=== PATIENT | female | born 1940 | race Caucasian/White ===

== ENCOUNTER 2019-11-27 10:25 | Inpatient (IN) | payer MEDICARE, BC ==
[2019-11-20 11:18] LABS: BASOPHILS # (AUTO) 0.1 X10'3 (0-0.2); BASOPHILS % (AUTO) 0.8 % (0-1); EOSINOPHILS # (AUTO) 0.1 X10'3 (0-0.9); EOSINOPHILS % (AUTO) 2.1 % (0-6); LYMPHOCYTES # (AUTO) 2.2 X10'3 (1.1-4.8); LYMPHOCYTES % (AUTO) 32.7 % (21-51); MEAN CORPUSCULAR HEMOGLOBIN 28.7 PG (27.0-31.0); MEAN CORPUSCULAR HGB CONC 32.7 g/dL (33.0-36.5); MEAN CORPUSCULAR VOLUME 87.7 FL (78-98); MEAN PLATELET VOLUME 7.6 FL (7.4-10.4); MONOCYTES # (AUTO) 0.4 X10'3 (0-0.9); MONOCYTES % (AUTO) 5.7 % (2-12); NEUTROPHILS % (AUTO) 58.7 % (42-75); PRE OP HEMATOCRIT 41.4 % (35.0-45.0); PRE OP HEMOGLOBIN 13.5 g/dL (12.0-16.0); PRE OP PLATELET COUNT 393 X10'3 (140-440); RED BLOOD COUNT 4.71 X10'6 (4.20-5.60); RED CELL DISTRIBUTION WIDTH 13.9 % (11.5-14.5)
[2019-11-20 11:31] LABS: ALBUMIN 3.5 G/DL (3.4-5.0); BLOOD UREA NITROGEN 15 MG/DL (7-18); CHLORIDE 108 MMOL/L (99-107); CREATININE 0.94 MG/DL (0.40-0.90); PRE OP ANION GAP 7 (8-16); PRE OP BILIRUB, TOTAL 0.4 MG/DL (0.0-1.0); PRE OP GLUCOSE 137 MG/DL (70-104); PRE OP POTASSIUM 3.9 MMOL/L (3.4-5.1); PRE OP SODIUM 143 MMOL/L (135-145); TOTAL CARBON DIOXIDE 28.4 MMOL/L (24-32); TOTAL PROTEIN 7.3 G/DL (6.4-8.2); eGFR 57 ML/MIN
[2019-11-20 11:32] LABS: ALBUMIN/GLOBULIN RATIO 0.9 (1.1-1.5); ALKALINE PHOSPHATASE 122 IU/L (46-116); PRE OP ALT 23 U/L (30-65); PRE OP AST 14 U/L (10-37)
[2019-11-20 11:58] LABS: HEMOGLOBIN A1C 7.2 % (4.5-6.2)
[~2019-11-27] VITALS: Ht 157.5 cm; Wt 88.0 kg
[2019-11-27] VITALS (18 sets, daily range): BP systolic 106–165; BP diastolic 47–84
[~2019-11-27 10:25] MED LIST: ASPI81TA52 PO; CHOL200035 PO; GLIM2TAB6 PO; LOSA50TA64 PO; MULT-1085 PO; OMEG500C PO; PANT-47 PO; PIOG30TA2 PO; clindamycin-Cleocin 900mg/D5W 50 ML IV ONE; famotidine 10mg tablet PO ONE; vancomycin inj 1,500 MG in normal saline 300ml IV soln IV ONE
[2019-11-27] MEDS: ringers solution, lacted 1,000 ML IV SCH ×2 (11:32→21:07)
[2019-11-27] MEDS ORDERED: ROPIVAcaine 0.5% (5mg/ml) 30ml vial ONE ×2 (13:28→16:51)
[2019-11-27] MEDS ORDERED: ketorolac trometh. 30mg/ml inj. ONE (13:28)
[2019-11-27] MEDS ORDERED: tetracaine 1% (10mg/ml) pres. free inj. ONE (14:20)
[2019-11-27] MEDS ORDERED: MIDAZolam 1mg/ml 10ml vial ONE (14:30)
[2019-11-27] MEDS ORDERED: fentaNYL/PF 50MCG/1 ML 2ML syringe ONE (14:30)
[2019-11-27] MEDS ORDERED: propofol inj 20 ML IV ONE (15:04)
[2019-11-27] MEDS ORDERED: ringers solution, lacted 1,000 ML IV SCH (15:33)
[2019-11-27] MEDS ORDERED: ondansetron/PF 4mg/2ml inj IV PRN ×2 (15:35→17:00)
[2019-11-27] MEDS ORDERED: morphine 4 MG/ML inj SYRINge IV PRN ×2 (15:35)
[2019-11-27] MEDS ORDERED: proCHLORperazine 10 MG/2 ml inj IV PRN (15:35)
[2019-11-27] MEDS ORDERED: meperidine/PF 25mg/ml syringe IV PRN ×3 (15:35)
[2019-11-27] MEDS ORDERED: acetaminophen 325mg tablet PO PRN (17:00)
[2019-11-27] MEDS ORDERED: bisacodyl 10mg suppository rectal RC PRN (17:00)
[2019-11-27] MEDS ORDERED: diphenhydrAMINE 25mg capsule PO PRN ×2 (17:00)
[2019-11-27] MEDS ORDERED: HYDROmorphone 1 mg/ml syringe IV PRN (17:00)
[2019-11-27] MEDS ORDERED: magnesium hydroxide 30ml (MOM) UD suspension PO PRN (17:00)
[2019-11-27] MEDS ORDERED: HYDROmorphone inj. 0.5 MG/0.5 ML DISP.SYRIN IV PRN (17:00)
[2019-11-27] MEDS ORDERED: oxyCODONE IR 5mg (immed. release) tablet PO PRN (17:00)
--- NOTE | 2019-11-27 17:30 | NUR ---
Received from OR via ORTHO BED WITH MDWILI , accompanied by Anesthesiologist ALBERTA and report given by Anesthesiolgist. PATIENT WITH 20G PIV IN LEFT UE RUNNING LR AT 100. DENIES PAIN. SPINAL SENSATION LEVEL AT T 9 AT THIS TIME. VSS. SCDS DONNED. VSS, GLASSES ON. Addendum: 11/27/19 at 1743 by Arun Chung RN, RN Amended: Links added.
[2019-11-27] MEDS: ROPIVAcaine 0.2%/PF PUMP/bolus 550 ML ADDCANAL SCH (17:37)
--- NOTE | 2019-11-27 18:49 | NUR ---
ALL CRITERIA FOR TRANSFER TO THE FLOOR HAS BEEN ACHIEVED. VSS. BED LOW, CALL LIGHT AND VS. SET IN PLACE. RN PRESENT TO ACCEPT CARE. PATIENT RESTING COMFORTABLY IN BED. BELONGINGS SENT WITH PATIENT. DRESSINGS CDI. ANJEL ARZATE PRESENT TO ACCEPT CARE OF PATIENT. Addendum: 11/27/19 at 1850 by Arun Roblero - ANJEL HOBBS Amended: Links added.
[2019-11-27] MEDS ORDERED: vancomycin/NS 1 GM ADD-VANTAGE 250 ML IV SCH (20:00)
[2019-11-27] MEDS: acetaminophen 325mg tablet PO SCH (20:56)
[2019-11-27] MEDS: sennosides 8.6mg tablet PO SCH (20:56)
[2019-11-27] MEDS: clindamycin 600mg/D5W 50ml 50 ML IV SCH (20:59)
[2019-11-27] MEDS: potassium cl 20mEq in 1/2 NS 1,000 ML IV SCH (21:08)
[2019-11-27] MEDS: oxyCODONE IR 5mg (immed. release) tablet PO PRN (21:17)
[2019-11-28] MEDS: clindamycin 600mg/D5W 50ml 50 ML IV SCH (01:57)
[2019-11-28 02:00] VITALS: BP 124/52
[2019-11-28] MEDS: acetaminophen 325mg tablet PO SCH ×4 (02:01→19:30)
[2019-11-28] MEDS: oxyCODONE IR 5mg (immed. release) tablet PO PRN ×4 (02:05→19:31)
[2019-11-28 06:00] VITALS: BP 105/41
[2019-11-28 06:13] LABS: BASOPHILS % (AUTO) 0.7 % (0-1); EOSINOPHILS # (AUTO) 0.2 X10'3 (0-0.9); EOSINOPHILS % (AUTO) 2.4 % (0-6); HEMOGLOBIN 10.5 g/dl (12.0-16.0); LYMPHOCYTES # (AUTO) 1.9 X10'3 (1.1-4.8); LYMPHOCYTES % (AUTO) 26.4 % (21-51); MEAN CORPUSCULAR HEMOGLOBIN 29.8 PG (27.0-31.0); MEAN CORPUSCULAR HGB CONC 33.9 g/dL (33.0-36.5); MEAN PLATELET VOLUME 7.3 FL (7.4-10.4); MONOCYTES # (AUTO) 0.6 X10'3 (0-0.9); MONOCYTES % (AUTO) 8.9 % (2-12); NEUTROPHILS # (AUTO) 4.4 X10'3 (1.8-7.7); NEUTROPHILS % (AUTO) 61.6 % (42-75); PLATELET COUNT 296 X10'3 (140-440); RED BLOOD COUNT 3.52 X10'6 (4.20-5.60); RED CELL DISTRIBUTION WIDTH 13.8 % (11.5-14.5); WHITE BLOOD COUNT 7.1 X10'3 (4.5-11.0)
[2019-11-28 07:21] LABS: ANION GAP 10 (8-16); CHLORIDE 107 MMOL/L (99-107); POTASSIUM 4.2 MMOL/L (3.5-5.1); SODIUM 141 MMOL/L (135-145); TOTAL CARBON DIOXIDE 24.3 MMOL/L (24-32)
[2019-11-28] MEDS: aspirin 325mg tablet PO SCH (07:43)
[2019-11-28] MEDS: vitamin D (cholecalciferol) 1,000 unit tablet PO SCH (07:43)
[2019-11-28] MEDS: losartan 50mg tablet PO SCH (07:43)
[2019-11-28] MEDS: multivitamins, therapeutics tablet PO SCH (07:43)
[2019-11-28] MEDS: pantoprazole 40mg Tablet.DR PO SCH (07:43)
[2019-11-28] MEDS: OMEGA-3/DHA/EPA/FISH OIL 1 EACH CAPSULE.DR PO SCH ×2 (07:43→19:29)
[2019-11-28] MEDS: glimepiride 1 MG tablet PO SCH (07:44)
[2019-11-28] MEDS: ROPIVAcaine 0.2% (10 MG/5 ML) BOLUS INJECTION ADDCANAL PRN (08:00)
[2019-11-28] MEDS ORDERED: aspirin 81mg tablet.DR PO SCH (08:00)
[2019-11-28] MEDS: pioglitazone 15mg tablet PO SCH (08:46)
[2019-11-28 10:00] VITALS: BP 118/48
[2019-11-28] MEDS: ROPIVAcaine 0.2%/PF PUMP/bolus 550 ML ADDCANAL SCH (10:00)
[2019-11-28 14:00] VITALS: BP 123/78
[2019-11-28] MEDS: potassium cl 20mEq in 1/2 NS 1,000 ML IV SCH ×2 (15:56→17:05)
--- NOTE | 2019-11-28 15:56 | NUR ---
Joint Replacement/DM Consult: Pt admitted with A1c of 7.2, previously documented with A1c of 6.6 on 07/2019. Pt s/p knee replacement. RD internal combustion engine inspector visited pt at bedside and provided written and verbal high protein and DM education with referral to CDE course and RD contact information. Pt reports currently on actos and glimepiride for DM management and checks her blood sugars in the morning and night. Pt reports she recently switched doctors for DM management; pt encouraged to visit doctor. Pt reports a good appetite and wishes for fruit on all trays, d/w dietary. Pt denies food allergies, difficulty chewing/swallowing, and constipation/diarrhea. Will continue to monitor. Addendum: 11/28/19 at 1557 by Wing Shelli RUSSELL Amended: Links added. Addendum: 11/28/19 at [address] I have reviewed and agree with note by Quill Layer. Bernadine Luna, RD
[2019-11-28 18:00] VITALS: BP 138/70
--- NOTE | 2019-11-28 18:29 | NUR ---
Problems reprioritized. Patient report given, questions answered & plan of care reviewed with Blanca HOBBS .
--- NOTE | 2019-11-28 18:38 | NUR ---
Patient in room ORTHO 4023. I have received report from Carlos HOBBS and had the opportunity to ask questions and assume patient care.
[2019-11-28] MEDS: sennosides 8.6mg tablet PO SCH (21:22)
[2019-11-28 22:00] VITALS: BP 132/53
[2019-11-29] MEDS: potassium cl 20mEq in 1/2 NS 1,000 ML IV SCH ×2 (00:56→08:56)
[2019-11-29] MEDS: acetaminophen 325mg tablet PO SCH ×3 (02:00→14:43)
[2019-11-29 05:00] VITALS: BP 145/59
--- NOTE | 2019-11-29 06:41 | NUR ---
Problems reprioritized. Patient report given, questions answered & plan of care reviewed with Edna HOBBS.
[2019-11-29 06:56] LABS: BASOPHILS % (AUTO) 0.6 % (0-1); EOSINOPHILS # (AUTO) 0.1 X10'3 (0-0.9); EOSINOPHILS % (AUTO) 2.1 % (0-6); HEMATOCRIT 29.8 % (35.0-45.0); HEMOGLOBIN 10.1 g/dl (12.0-16.0); LYMPHOCYTES # (AUTO) 1.5 X10'3 (1.1-4.8); LYMPHOCYTES % (AUTO) 25.1 % (21-51); MEAN CORPUSCULAR HEMOGLOBIN 29.5 PG (27.0-31.0); MEAN CORPUSCULAR HGB CONC 33.9 g/dL (33.0-36.5); MEAN CORPUSCULAR VOLUME 87.1 FL (78-98); MEAN PLATELET VOLUME 7.7 FL (7.4-10.4); MONOCYTES # (AUTO) 0.7 X10'3 (0-0.9); MONOCYTES % (AUTO) 10.9 % (2-12); NEUTROPHILS # (AUTO) 3.7 X10'3 (1.8-7.7); NEUTROPHILS % (AUTO) 61.3 % (42-75); PLATELET COUNT 302 X10'3 (140-440); RED BLOOD COUNT 3.42 X10'6 (4.20-5.60); RED CELL DISTRIBUTION WIDTH 13.7 % (11.5-14.5)
[2019-11-29] MEDS: oxyCODONE IR 5mg (immed. release) tablet PO PRN ×4 (07:43→23:00)
[2019-11-29] MEDS: ROPIVAcaine 0.2%/PF PUMP/bolus 550 ML ADDCANAL SCH (07:45)
[2019-11-29] MEDS: losartan 50mg tablet PO SCH (08:33)
[2019-11-29] MEDS: pioglitazone 15mg tablet PO SCH (08:33)
[2019-11-29] MEDS: pantoprazole 40mg Tablet.DR PO SCH (08:33)
[2019-11-29] MEDS: aspirin 325mg tablet PO SCH (08:33)
[2019-11-29] MEDS: OMEGA-3/DHA/EPA/FISH OIL 1 EACH CAPSULE.DR PO SCH ×2 (08:35→20:27)
[2019-11-29] MEDS: vitamin D (cholecalciferol) 1,000 unit tablet PO SCH (08:35)
[2019-11-29] MEDS: multivitamins, therapeutics tablet PO SCH (08:35)
[2019-11-29] MEDS: glimepiride 1 MG tablet PO SCH (08:44)
[2019-11-29 10:00] VITALS: BP 121/48
[2019-11-29 17:00] VITALS: BP 129/47
[2019-11-29] MEDS ORDERED: acetaminophen 325mg tablet PO PRN (17:00)
[2019-11-29 18:00] VITALS: BP 129/47
[2019-11-29] MEDS: sennosides 8.6mg tablet PO SCH (20:27)
[2019-11-29 22:00] VITALS: BP 117/48
--- NOTE | 2019-11-29 23:16 | NUR ---
reviewed and agree with SRN nursing assessment.
[2019-11-30] MEDS: oxyCODONE IR 5mg (immed. release) tablet PO PRN (05:29)
--- NOTE | 2019-11-30 06:05 | NUR ---
Problems reprioritized. Patient report given, questions answered & plan of care reviewed with ANJEL Kunz.
[2019-11-30 06:12] LABS: BASOPHILS % (AUTO) 0.4 % (0-1); EOSINOPHILS # (AUTO) 0.2 X10'3 (0-0.9); EOSINOPHILS % (AUTO) 2.3 % (0-6); HEMATOCRIT 28.4 % (35.0-45.0); HEMOGLOBIN 9.7 g/dl (12.0-16.0); LYMPHOCYTES % (AUTO) 25.7 % (21-51); MEAN CORPUSCULAR HEMOGLOBIN 29.5 PG (27.0-31.0); MEAN CORPUSCULAR HGB CONC 34.1 g/dL (33.0-36.5); MEAN CORPUSCULAR VOLUME 86.5 FL (78-98); MEAN PLATELET VOLUME 7.5 FL (7.4-10.4); MONOCYTES # (AUTO) 0.7 X10'3 (0-0.9); MONOCYTES % (AUTO) 9.7 % (2-12); NEUTROPHILS # (AUTO) 4.7 X10'3 (1.8-7.7); NEUTROPHILS % (AUTO) 61.9 % (42-75); PLATELET COUNT 305 X10'3 (140-440); RED BLOOD COUNT 3.29 X10'6 (4.20-5.60); RED CELL DISTRIBUTION WIDTH 13.6 % (11.5-14.5); WHITE BLOOD COUNT 7.6 X10'3 (4.5-11.0)
--- NOTE | 2019-11-30 06:29 | NUR ---
Received report from Vickie HOBBS
[2019-11-30 07:06] VITALS: BP 128/65
[2019-11-30] MEDS: pantoprazole 40mg Tablet.DR PO SCH (07:45)
[2019-11-30] MEDS: vitamin D (cholecalciferol) 1,000 unit tablet PO SCH (07:46)
[2019-11-30] MEDS: multivitamins, therapeutics tablet PO SCH (07:46)
[2019-11-30] MEDS: glimepiride 1 MG tablet PO SCH (07:46)
[2019-11-30] MEDS: losartan 50mg tablet PO SCH (07:46)
[2019-11-30] MEDS: aspirin 325mg tablet PO SCH (07:46)
[2019-11-30] MEDS: pioglitazone 15mg tablet PO SCH (07:46)
[2019-11-30] MEDS: OMEGA-3/DHA/EPA/FISH OIL 1 EACH CAPSULE.DR PO SCH (07:46)
[2019-11-30] MEDS: ROPIVAcaine 0.2% (10 MG/5 ML) BOLUS INJECTION ADDCANAL PRN (11:55)
[2019-11-30 12:18] VITALS: BP 111/64
--- NOTE | 2019-11-30 16:25 | NUR ---
PATIENT WAS DISCHARGED IV AND TELE WAS REMOVED FROM PATIENT. PATIENT WAS ALERT AND ORIENTED AT TIME OF DISCHARGE, PATIENT LEFT WITH .
--- NOTE | 2019-12-02 12:41 | NUR ---
Case Management DC follow up: spoke to pt via telephone. reports feeling good. Feels better when she is up walking. Denies cp, emergent/acute general pain, rash, SOB, resp distress, NV, dizziness. Denies s/s swelling, redness, increased pain L leg. verbalizes understanding of meds and why prescribed, taking as ordered, no ase noted. pt will take pain pump off as ordered. no evidence of infection noted to surg site. Jaimie CDI. Verbalizes understanding of s/s that would warrant 9-11/ER visit for evaluation. Follow up w/Dr Nava 12/17/2019. will call PCP to schedule follow up. needs met, questions answered, no further questions at this time.
== END 2019-11-30 16:56 | disposition home or self-care (01) | DRG 470 ==
LOC: PAS 10:25 → ORTHO 4S 16:56 → OBSVTOIN 11-28 10:00
PROVIDERS: ADMIT Orthopaedic Surgery; ATTEND Orthopaedic Surgery
PROC: 3E0T3BZ Introduction of Anesthetic Agent into Peripheral Nerves and Plexi, Percutaneous Approach (ICD-10-PCS; 2019-11-27)
PROC: 8E0YXBZ Computer Assisted Procedure of Lower Extremity (ICD-10-PCS; 2019-11-27)
PROC: 8E0YXCZ Robotic Assisted Procedure of Lower Extremity (ICD-10-PCS; 2019-11-27)
PROC: 0SRD069 Replacement of Left Knee Joint with Oxidized Zirconium on Polyethylene Synthetic Substitute, Cemented, Open Approach (ICD-10-PCS; principal; 2019-11-27 14:26)
DX: M17.12 Unilateral primary osteoarthritis, left knee (principal); D62 Acute posthemorrhagic anemia; G89.4 Chronic pain syndrome; E66.01 Morbid (severe) obesity due to excess calories; I25.10 Atherosclerotic heart disease of native coronary artery without angina pectoris; Z96.641 Presence of right artificial hip joint; M16.12 Unilateral primary osteoarthritis, left hip; E11.59 Type 2 diabetes mellitus with other circulatory complications; I10 Essential (primary) hypertension; K21.9 Gastro-esophageal reflux disease without esophagitis; Z88.8 Allergy status to other drugs, medicaments and biological substances; Z68.35 Body mass index [BMI] 35.0-35.9, adult; Z90.49 Acquired absence of other specified parts of digestive tract; Z79.899 Other long term (current) drug therapy; Z79.82 Long term (current) use of aspirin
CPT/HCPCS: 36415; 80051; 80053; 82948; 83036; 85025; 87081; 97110; 97116; 97161; 97530; A4215; A6454; A7000; C1713; C1758; C1776; G0378; J1885; J2175; J2250; J2704; J2795; J3010; J3370; J3480; J3490; J7120

== ENCOUNTER 2022-01-04 10:38 | Emergency (ER) | payer MEDICARE, BC ==
[~2022-01-04] VITALS: Ht 157.5 cm; Wt 98.0 kg
[~2022-01-04 10:38] MED LIST changes: -clindamycin-Cleocin 900mg/D5W 50 ML IV ONE; -famotidine 10mg tablet PO ONE; -vancomycin inj 1,500 MG in normal saline 300ml IV soln IV ONE
[2022-01-04 10:45] VITALS: BP 153/82
== END 2022-01-04 13:09 | disposition home or self-care (01) ==
LOC: ER 10:39
DX: Z20.822 Contact with and (suspected) exposure to COVID-19 (principal); R05.9 Cough, unspecified; I25.10 Atherosclerotic heart disease of native coronary artery without angina pectoris; E78.00 Pure hypercholesterolemia, unspecified; I10 Essential (primary) hypertension; K21.9 Gastro-esophageal reflux disease without esophagitis; E11.9 Type 2 diabetes mellitus without complications; Z88.1 Allergy status to other antibiotic agents; Z88.8 Allergy status to other drugs, medicaments and biological substances; Z79.82 Long term (current) use of aspirin; Z79.899 Other long term (current) drug therapy
CPT/HCPCS: 71045; 87635; 99284; C9803

== ENCOUNTER 2022-06-10 15:20 | Emergency (ER) | payer MEDICARE, BC ==
[~2022-06-10] VITALS: Ht 157.5 cm; Wt 99.1 kg
[~2022-06-10 15:20] MED LIST changes: +AMIO200T61 PO; +APIX5TAB3 PO; +LOP12.5T PO
[2022-06-10 16:09] LABS: BASOPHILS # (AUTO) 0.1 X10'3 (0-0.2); BASOPHILS % (AUTO) 0.7 % (0-1); EOSINOPHILS # (AUTO) 0.1 X10'3 (0-0.9); EOSINOPHILS % (AUTO) 1.2 % (0-6); HEMATOCRIT 39.6 % (35.0-45.0); HEMOGLOBIN 13.3 g/dl (12.0-16.0); LYMPHOCYTES # (AUTO) 2.5 X10'3 (1.1-4.8); LYMPHOCYTES % (AUTO) 34.2 % (21-51); MEAN CORPUSCULAR HEMOGLOBIN 30.1 PG (27.0-31.0); MEAN CORPUSCULAR HGB CONC 33.5 g/dL (33.0-36.5); MEAN CORPUSCULAR VOLUME 89.7 FL (78-98); MEAN PLATELET VOLUME 7.5 FL (7.4-10.4); MONOCYTES # (AUTO) 0.5 X10'3 (0-0.9); MONOCYTES % (AUTO) 7.3 % (2-12); NEUTROPHILS # (AUTO) 4.2 X10'3 (1.8-7.7); NEUTROPHILS % (AUTO) 56.6 % (42-75); PLATELET COUNT 347 X10'3 (140-440); RED BLOOD COUNT 4.42 X10'6 (4.20-5.60); RED CELL DISTRIBUTION WIDTH 13.3 % (11.5-14.5); WHITE BLOOD COUNT 7.4 X10'3 (4.5-11.0)
[2022-06-10 16:21] LABS: ALANINE AMINOTRANSFERASE 21 U/L (12-78); ALBUMIN 3.6 G/DL (3.4-5.0); ALBUMIN/GLOBULIN RATIO 0.9 (1.1-1.5); ALKALINE PHOSPHATASE 89 IU/L (46-116); ANION GAP 9 (8-16); ASPARTATE AMINO TRANSFERASE 17 U/L (10-37); BILIRUBIN,TOTAL 0.4 MG/DL (0.1-1.0); BLOOD UREA NITROGEN 26 MG/DL (7-18); BUN/CREATININE RATIO 22.6 (6.6-38.0); CALCIUM 8.9 MG/DL (8.5-10.1); CHLORIDE 104 MMOL/L (99-107); CREATININE 1.15 MG/DL (0.40-0.90); GLUCOSE 152 MG/DL (70-104); POTASSIUM 4.5 MMOL/L (3.5-5.1); SODIUM 140 MMOL/L (135-145); TOTAL CARBON DIOXIDE 27.1 MMOL/L (24-32); TOTAL PROTEIN 7.5 G/DL (6.4-8.2); eGFR 45 ML/MIN
[2022-06-10] MEDS ORDERED: hydrALAZINE 20mg/ml inj. IV ONE ×2 (18:35→19:10)
--- NOTE | 2022-06-10 18:45 | NUR ---
Pt SBP 220. Verbal orders for Hydralazine 10 mg.
[2022-06-10] MEDS ORDERED: nitroGLYCERIN 0.4mg/hour patch TD ONE (19:10)
[2022-06-10] MEDS ORDERED: hyDRALAzine 10mg tablet PO SCH (19:10)
[2022-06-10 20:45] VITALS: BP 151/60
--- NOTE | 2022-06-10 21:01 | NUR ---
Per md instructions, pt self administered metoprolol 25g, Eliquis 5 mg, amiodarone 100 mg.
== END 2022-06-10 22:07 | disposition home or self-care (01) ==
LOC: ER 15:20
DX: I10 Essential (primary) hypertension (principal); R07.89 Other chest pain; E78.00 Pure hypercholesterolemia, unspecified; K21.9 Gastro-esophageal reflux disease without esophagitis; E11.9 Type 2 diabetes mellitus without complications; Z88.1 Allergy status to other antibiotic agents; Z88.8 Allergy status to other drugs, medicaments and biological substances
CPT/HCPCS: 36415; 71045; 80053; 83880; 84484; 85025; 93005; 96374; 99285; J0360

== ENCOUNTER 2023-01-03 09:55 | Outpatient (CLI) | payer MEDICARE, BC ==
[~2023-01-03 09:55] MED LIST changes: -AMIO200T61 PO
== END 2023-01-03 23:59 | disposition home or self-care (01) ==
LOC: RT 09:55
PROVIDERS: ATTEND Internal Medicine Cardiovascular Disease
DX: Z79.899 Other long term (current) drug therapy (principal)
CPT/HCPCS: 85018; 94010; 94727; 94729